=== PATIENT | female | born 1995 | race Caucasian/White ===

== ENCOUNTER 2020-02-02 22:04 | Emergency (ER) | payer SELFPAY ==
--- NOTE | 2020-02-02 22:33 | EDM.PDOC ---
ED HPI GENERAL MEDICAL PROBLEM - General Chief Complaint: Genitourinary Problem Stated Complaint: vagina problem Time Seen by Provider: 02/02/20 22:20 Source of Information: Reports: Patient History Limitations: Reports: No Limitations - History of Present Illness INITIAL COMMENTS - FREE TEXT/NARRATIVE: Patient is a 24-year-old female who is complaining of having discharge which she thinks is stool from her vagina. This is been going on for several days. She states it is a watery brown discharge with a foul odor. She is not having any pain in the area. She denies any fever or chills. She denies any dysuria or hematuria. She has not had previously similar symptoms. She has no history of having any fistulas. She recently had intercourse and had no pain with this but noticed afterwards the odor was very strong. She has no other complaints and denies any abdominal pain. Patient is eating a sandwich when I walk in the room. He has not been nauseous or vomiting. Duration: Day(s): (four) Location: Reports: Pelvis Severity: Mild Improves with: Reports: None Worsens with: Reports: None Associated Symptoms: Reports: No Other Symptoms left flank Pain Score (Numeric/FACES): 5 - Related Data Allergies Allergy/AdvReac Type Severity Reaction Status Date / Time No Known Allergies Allergy Verified 02/02/20 22:32 Home Meds: Home Meds . 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 ED EXAM, RENAL/ - Physical Exam Exam: See Below Exam Limited By: No Limitations General Appearance: Alert, No Apparent Distress Head: Atraumatic Neck: Normal Inspection, Supple Respiratory/Chest: No Respiratory Distress (Female) Exam: Normal External Exam, Vaginal Discharge, Other (Tampon was found which was a source of patient's symptoms. It did have a foul odor.). No : Normal Speculum Exam Extremities: Normal Inspection Neurological: Alert, Oriented Psychiatric: Normal Affect Skin Exam: Warm, Dry Course - Vital Signs Text/Narrative:: Patient's urine shows no sign of any infection and her beta-hCG was negative. In the left AWOL before she was told this information. Last Recorded V/S: Last Vital Signs Temp 36.0 C L 02/02/20 22:33 Pulse 118 H 02/02/20 22:33 Resp 18 02/02/20 22:33 BP 110/77 02/02/20 22:33 Pulse Ox 98 02/02/20 22:33 - Orders/Labs/Meds Labs: Laboratory Tests 02/02/20 02/02/20 Range/Units 22:30 22:30 Urine Color YELLOW Urine Appearance CLEAR Urine pH 6.0 (5.0-8.0) Ur Specific Magnet >= 1.030 (1.001-1.035) Urine Protein NEGATIVE (NEGATIVE) mg/dL Urine Glucose (UA) NEGATIVE (NEGATIVE) mg/dL Urine Ketones NEGATIVE (NEGATIVE) mg/dL Urine Occult Blood NEGATIVE (NEGATIVE) Urine Nitrite NEGATIVE (NEGATIVE) Urine Bilirubin NEGATIVE (NEGATIVE) Urine Urobilinogen 0.2 (<2.0) EU/dL Ur Leukocyte Esterase NEGATIVE (NEGATIVE) Urine RBC NONE SEEN (0-2/HPF) Urine WBC 0-1 (0-5/HPF) Ur Epithelial Cells FEW (NONE-FEW) Urine Bacteria 1+ H (NEGATIVE) Urine Mucus LIGHT (NONE-MOD) Urine HCG, Qual NEGATIVE (NEGATIVE) Departure - Departure Time of Disposition: 23:29 Disposition: Eloped 07 Condition: Good Clinical Impression: Vaginal foreign body - Discharge Information Referrals: PCP,None [Primary Care Provider] - Forms: ED Department Discharge Care Plan Goals: The following information is given to patients seen in the emergency department who are being discharged to home. This information is to outline your options for follow-up care. We provide all patients seen in our emergency department with a follow-up referral. The need for follow-up, as well as the timing and circumstances, are variable depending upon the specifics of your emergency department visit. If you don't have a primary care physician on staff, we will provide you with a referral. We always advise you to contact your personal physician following an emergency department visit to inform them of the circumstance of the visit and for follow-up with them and/or the need for any referrals to a consulting specialist. The emergency department will also refer you to a specialist when appropriate. This referral assures that you have the opportunity for follow-up care with a specialist. All of these measure are taken in an effort to provide you with optimal care, which includes your follow-up. Under all circumstances we always encourage you to contact your private physician who remains a resource for coordinating your care. When calling for follow-up care, please make the office aware that this follow-up is from your recent emergency room visit. If for any reason you are refused follow-up, please contact the [facility] Emergency Department at and asked to speak to the emergency department charge nurse. Sepsis Event Note - Focused Exam Vital Signs: Vital Signs Temp Pulse Resp BP Pulse Ox 02/02/20 22:33 36.0 C L 118 H 18 110/77 98 Date Exam was Performed: 02/02/20 Time Exam was Performed: 23:25
[2020-02-02 22:38] VITALS: BP 110/77; PULSE 118
== END 2020-02-02 23:10 | disposition left against medical advice (07) ==
LOC: MW.ED 22:04
DX: T19.2XXA Foreign body in vulva and vagina, initial encounter (principal)
CPT/HCPCS: 81001; 81025; 99282; 99283